=== PATIENT | female | born 1965 | race Caucasian/White ===

== ENCOUNTER 2017-11-16 19:12 | Observation (INO) | payer SELFPAY ==
[2017-11-16 20:15] VITALS: BMI 32.8
[2017-11-16] MEDS ORDERED: traZODone HCl 50 MG TAB PO PRN (20:33)
[2017-11-16] MEDS ORDERED: Morphine 4 MG/ML Carpuject SLOW IVP PRN (20:41)
[2017-11-16] MEDS ORDERED: Acetaminophen 325 MG TAB PO SCH (20:45)
[2017-11-16] MEDS ORDERED: Fentanyl 100 MCG/2 ML VIAL SLOW IVP PRN (21:00)
[2017-11-16] MEDS ORDERED: Lovastatin 20 MG TAB PO SCH (21:00)
[2017-11-16] MEDS: Metoprolol Tartrate 25 MG TAB PO SCH (21:13)
[2017-11-16 21:15] LABS: Troponin I 0.724 ng/mL (< 0.028)
[2017-11-16] MEDS ORDERED: Nitroglycerin 100MG/250ML BOT 250 ML ONE (22:09)
[2017-11-16] MEDS ORDERED: Verapamil 5 MG/2 ML VIAL ONE (22:09)
[2017-11-16] MEDS ORDERED: Heparin 10,000 UNITS/1 ML VIAL ONE (22:09)
[2017-11-16] MEDS ORDERED: Midazolam HCl 2 mg/2 ml Vial ONE (22:12)
[2017-11-16] MEDS ORDERED: Fentanyl 100 MCG/2 ML VIAL ONE (22:13)
[2017-11-16] MEDS ORDERED: Nitroglycerin 0.4 MG TAB (25 Tab Bottle) SL PRN (22:56)
[2017-11-16] MEDS ORDERED: Sodium Chloride 0.9% 1,000 ML IV SCH (22:56)
[2017-11-16] MEDS ORDERED: Sodium Chloride 0.9% 200 ML IV SCH (22:56)
--- NOTE | 2017-11-17 00:40 | CON ---
DATE OF CONSULTATION: 11/16/2017 REASON FOR CONSULTATION: Unstable angina. PRIMARY CARE PROVIDER: Dr. Castellano. HISTORY OF PRESENT ILLNESS: Ms. Angeles is a 52-year-old woman with a previous history of tobacco abu se who recently presented with chest pain. It began this morning. The pain has continued. Her init ial troponin was 0.02, it increased to 0.3, last was at 0.7. She has received a dose of Lovenox and been on nitroglycerin. She is allergic to MORPHINE. PAST MEDICAL HISTORY: Previous tobacco abuse, hyperlipidemia, hypertension. ALLERGIES: CODEINE. HOME MEDICATIONS: Include lisinopril, carvedilol, lovastatin, trazodone, and Flexeril. SOCIAL HISTORY: No current tobacco or alcohol use. She is currently with 3 children. REVIEW OF SYSTEMS: Ten-point review of systems is reviewed and as above, otherwise negative. PHYSICAL EXAMINATION: GENERAL: Patient is a pleasant female who is in no acute distress. She does appear older than her s tated age. VITAL SIGNS: Blood pressure 126/73, pulse 76, temperature afebrile. NEUROLOGIC: The patient is alert and oriented times 3 with no focal neurologic deficits. HEENT: Sclerae without icterus. Mouth has moist mucous membranes with normal pallor. NECK: No JVD. Carotid upstroke brisk. No bruits bilaterally. LUNGS: Clear to auscultation with unlabored respirations. BACK: No scoliosis or kyphosis. CARDIAC: Regular rate and rhythm with normal S1 and S2. No S3 or S4 noted. No significant rubs, murmurs, thrills, or gallops noted throughout the precordium. PMI is not displa florencio. There is no parasternal heave. ABDOMEN: Soft, nontender, nondistended. No peritoneal signs present. No hepatosplenomegaly. No ab normal striae. EXTREMITIES: 2+ femoral and 2+ dorsalis pedis pulses. No cyanosis, clubbing, or edema. SKIN: No gross abnormalities. PERTINENT LABORATORY DATA: CK and troponin as above. EKG, normal sinus rhythm and nonspecific ST-T wave changes. IMPRESSION: Unstable angina. RECOMMENDATIONS: Ms. Angeles's symptoms continue in addition to increase in her troponin. I discusse d options including medical therapy versus angiography. I have discussed the risks and benefits of b oth, she decided to proceed with coronary angiography. I discussed the procedure in full detail with Idalmis Karthik. The risks of the procedure were also discussed. The risks of the procedure include but are not limited to the following: , stroke, NM, need for emergency surgery, loss of limb, blee ding, and infection, as well as a reaction to the dye causing kidney failure and needing long-term di alysis. I also discussed the risks of PCI to include all of the above including coronary dissection and perforation in addition to acute stent thrombosis and restenosis. All questions about the proced ure were answered. Given the above, the patient agreed to proceed with coronary angiography and poss ible PCI. I also discussed drug-coated versus nondrug coated stent placement. There are no contrain dications. We will proceed if needed. Further recommendations pending the above.
--- NOTE | 2017-11-17 01:05 | HP ---
CHIEF COMPLAINT: Transferred from [place] [facility] for chest pain and positive troponin. HISTORY OF PRESENT ILLNESS: She is a 52-year-old woman with a history of hypertension. She came in because of chest pain. She woke up with chest pain in the left side, retrosternal, radiated to left arm, 10/10 to start with, now it is 3/10. The patient complained of shortness of breath and diaphoresis. No nausea. No vomiting. Because of these symptoms, she went to another ER of [facility]. Over there, first two sets of enzymes were negative. Third set came back positive at 0.3. Because of positive enzymes, she was admitted to this hospital. Vital signs in the ER; pulse 87, blood pressure 151/ 97, respirations 20, temperature 98.4. PAST MEDICAL HISTORY: History of hyperlipidemia, hypertension, mitral valve prolapse. PAST SURGICAL HISTORY: Ectopic , appendectomy, . PSYCHIATRIC HISTORY: Negative. SOCIAL HISTORY: She drinks socially every week. Denies drug use. Former smoker. Uses electronic cigarette now. FAMILY HISTORY: Positive for CAD. Sibling has cardiac history and pacemaker. MEDICATIONS: Current medications she is taking at home: Amlodipine 10 mg daily , lovastatin 20 mg daily, trazodone 50 mg daily. REVIEW OF SYSTEMS: Constitutional: She denies any fever, any shortness of breath. Denies any chills or fever. Ear, nose, throat: Denies any sinus pain or sore throat. Cardiovascular: Have chest pain. Denies any shortness of breath on exertion. Respiratory: Some cough. No shortness of breath. No wheezing. Gastrointestinal: She denies any nausea. No vomiting. Genitourinary: Female. She denies any dysuria, hematuria. Musculoskeletal: Denies any arthralgia or myalgia. Skin: No ulcer. No rash. Neurologic: She does have some headache. No weakness. No numbness. Hematologic: Denies any bruising or petechiae. PHYSICAL EXAMINATION: GENERAL: She is a middle-aged woman lying in the bed, not in distress. VITAL SIGNS: Pulse 80, blood pressure 140/80, respiratory rate 20, temperature 98.4. HEENT: Head is atraumatic, normocephalic. Pupils round and reactive. Extraocular muscles intact. NECK: Supple. No JVD. No thyromegaly. No carotid bruit. Trachea midline. LUNGS: Chest has a normal vesicular breathing. No added sounds. She does have chest wall tenderness. CARDIOVASCULAR: S1, S2 audible. No S3, S4. No murmur. ABDOMEN: Soft. Bowel sounds audible. No organomegaly. No guarding or rigidity. EXTREMITIES: No pedal edema. CENTRAL NERVOUS SYSTEM: Alert and oriented x3. No focal deficit. IMAGING: EKG shows normal sinus rhythm, 91 beats, no ST changes. CT angio is negative. Emphysema, chronic COPD changes, but no embolism. LABORATORY DATA: Lab shows a CBC, WBC 6.3, hemoglobin 14.2, hematocrit 41.9, MCV 91.2, platelets 268. Troponin 0.073, 0.346 third set. CK-MB 1.3, 3.1, and 6.8. ASSESSMENT AND PLAN: Unstable angina with persistent chest pain and positive troponin. Lovenox 1 mg/kg was given in the ER. Aspirin, beta prudencio, echocardiogram, Cardiology consultation, nitroglycerin p.r.n., IV morphine 2-4 mg every 4 hourly, DVT prophylaxis with Lovenox. MTDD
[2017-11-17 05:42] LABS: Cardiac Risk 4.4 (Less than 4.5)
[2017-11-17] MEDS: Nitroglycerin 2% Ointment 1 INCH/1 GM Packet TOP SCH ×3 (06:19→15:18)
--- NOTE | 2017-11-17 07:26 | PDOC.PN ---
- Subjective Encounter Start Date: 11/17/17 Encounter Start Time: 07:25 Subjective: Seen and examined feeling ok - Objective Vital Signs & Weight: Vital Signs (12 hours) Temp Pulse Resp BP Pulse Ox 11/16/17 22:56 98.1 F 79 16 131/79 97 11/16/17 21:10 98.4 F 16 L 16 126/73 99 11/16/17 20:12 97.4 F L 76 16 130/70 96 Weight Weight 197 lb 5 oz Phys Exam - Physical Examination Constitutional: NAD HEENT: PERRLA, moist MMs, sclera anicteric, TM's clear Neck: no nodes, no JVD, supple, full ROM Respiratory: no wheezing, no rales, no rhonchi, clear to auscultation bilateral Cardiovascular: RRR, no significant murmur, no rub Gastrointestinal: soft, non-tender, no distention, positive bowel sounds Musculoskeletal: no edema, pulses present Dx/Plan (1) NSTEMI (non-ST elevated myocardial infarction) Code(s): I21.4 - NON-ST ELEVATION (NSTEMI) MYOCARDIAL INFARCTION Status: Acute (2) HLD (hyperlipidemia) Code(s): E78.5 - HYPERLIPIDEMIA, UNSPECIFIED Status: Acute (3) HTN (hypertension) Code(s): I10 - ESSENTIAL (PRIMARY) HYPERTENSION Status: Acute - Plan Appreciate cardiology input -: Awaiting Echocardiogram -: cardiac cath per cardiology * .
[2017-11-17] MEDS ORDERED: Ondansetron ODT 4 MG TAB PO PRN (08:17)
[2017-11-17] MEDS: Metoprolol Tartrate 25 MG TAB PO SCH (08:59)
[2017-11-17] MEDS ORDERED: Amlodipine 10 MG TAB PO SCH (09:00)
[2017-11-17] MEDS ORDERED: Enoxaparin Sodium 40 MG/0.4 ML SYRINGE SC SCH (09:00)
[2017-11-17] MEDS ORDERED: FLU VACC QS2017-18 36 mo. & older 0.5 ML SYRINGE IM ONE (09:00)
[2017-11-17] MEDS ORDERED: Aspirin 325 MG TAB PO SCH (09:00)
[2017-11-17 16:04] VITALS: BP 127/78; TEMP 97.9
== END 2017-11-17 17:25 | disposition home or self-care (01) ==
LOC: INTOOBSV 19:32 → 2SE 19:32
PROVIDERS: ADMIT Internal Medicine; ATTEND Internal Medicine
DX: I20.0 Unstable angina (principal); E78.5 Hyperlipidemia, unspecified; I10 Essential (primary) hypertension; I34.1 Nonrheumatic mitral (valve) prolapse; F17.290 Nicotine dependence, other tobacco product, uncomplicated; Z88.5 Allergy status to narcotic agent; Z91.018 Allergy to other foods; Z90.49 Acquired absence of other specified parts of digestive tract; Z98.891 History of uterine scar from previous surgery; Z87.59 Personal history of other complications of pregnancy, childbirth and the puerperium
CPT/HCPCS: 36415; 80061; 93458; 93798; 96372; 96374; 99152; A4216; C1769; G0378; J1644; J1650; J2250; J3010; Q0162